=== PATIENT | male | born 2000 | race Two or more races ===

== ENCOUNTER 2022-04-13 13:42 | Emergency (ER) | payer OTHER ==
[~2022-04-13] VITALS: Ht 170.2 cm; Wt 88.5 kg
== END 2022-04-13 19:25 | disposition home or self-care (01) ==
LOC: ER 13:42
DX: S43.102A Unspecified dislocation of left acromioclavicular joint, initial encounter (principal); W05.2XXA Fall from non-moving motorized mobility scooter, initial encounter; Y93.89 Activity, other specified; Y92.89 Other specified places as the place of occurrence of the external cause; Y99.9 Unspecified external cause status